=== PATIENT | male | born 1940 | race Caucasian/White ===

== ENCOUNTER 2019-05-11 20:08 | Inpatient (IN) ==
--- NOTE | 2019-05-11 22:18 | Diag Imaging Result Doc PS360 ---
EXAM: CHEST-2 VIEWS INDICATION: cough TECHNIQUE: 2 views COMPARISON: 11/24/2016 FINDINGS: The lungs are grossly clear. There is slight posterior costophrenic angle blunting suggesting possible trace effusions. There is no evidence of pneumothorax. The cardiomediastinal silhouette and central vasculature are grossly unremarkable. IMPRESSION: Mild posterior costophrenic angle blunting suggesting possible trace effusions.No definite acute pathology by plain radiograph, otherwise. Electronically signed by Evan Pike 05/11/2019 10:16 PM
[2019-05-11] MEDS ORDERED: TYLENOL PO ONE (23:08)
[2019-05-11] MEDS ORDERED: NS 1,000 ML IV ONE (23:19)
[2019-05-12] MEDS ORDERED: ZOFRAN IV ONE (00:01)
[2019-05-12 00:37] LABS: BASO# 0.01 X1000 (0.0-0.2); BASO% 0.2 % (0.0-0.8); EOS# 0.12 X1000 (0.0-0.7); EOS% 1.8 % (0.0-10.0); HEMATOCRIT 39.5 % (42.0-52.0); LYMPH# 0.38 X1000 (1.2-3.4); LYMPH% 5.8 % (20.5-51.1); MCH 32.3 PG (27-31); MCHC 32.9 g/dL (33-37); MCV 98.3 FL (81-99); MONO# 0.03 X1000 (0.11-0.59); MONO% 0.5 % (1.7-9.3); MPV 10.8 FL (7.4-10.4); NEUT# 5.98 X1000 (1.4-6.5); NEUT% 91.7 % (42.2-75.2); PLT 169 X1000 (130-400); RBC 4.02 XMIL (4.7-6.1); RDW 13.9 % (11.5-14.5); WBC 6.52 X1000 (4.8-10.8)
[2019-05-12 00:40] LABS: URINE SOURCE CLEAN CATCH
[2019-05-12 00:43] LABS: BILIRUBIN URINE NEGATIVE (NEGATIVE); BLOOD URINE MODERATE (NEGATIVE); COLOR YELLOW; GLUCOSE URINE >1000 mg/dL (NEGATIVE); KETONE URINE NEGATIVE (NEGATIVE); LEUKOCYTES URINE TRACE (NEGATIVE); NITRITE URINE POSITIVE (NEGATIVE); PROTEIN URINE TRACE mg/dL (NEGATIVE); SP GRAVITY URINE 1.018; TURBIDITY URINE HAZY (CLEAR); UR EPITHELIAL CELLS <10 /HPF (<10); URINE BACTERIA 4+ /HPF; URINE RBC TNTC /HPF (<10); UROBILINOGEN URINE NORMAL (NORMAL)
[2019-05-12] MEDS ORDERED: ROCEPHIN 1 GM in NS 50 ML IV ONE (00:45)
[2019-05-12 00:46] LABS: AGAP 14; ALB/GLOB RATIO 1.7; ALBUMIN 4.2 g/dL (3.5-5.0); ALKALINE PHOSPHATASE 67 U/L (32-122); BUN 20 mg/dL (8-22); CALCIUM 8.5 mg/dL (8.8-10.2); CHLORIDE 104 mmol/L (98-107); COSMO 289; CREATININE 1.1 mg/dL (0.7-1.2); ESTIMATED GFR > 60; GLUCOSE 255 mg/dL (70-104); GOT 25 U/L (10-34); GPT 14 U/L (10-44); POTASSIUM 4.1 mmol/L (3.5-5.1); SODIUM 139 mmol/L (136-145); TCO2 21 mmol/L (25-35); TOTAL PROTEIN 6.7 g/dL (6.3-8.3)
--- NOTE | 2019-05-12 01:08 | PROVIDER DOCUMENTATION ---
This chart was entered by Anne Pike Scribe, acting as scribe for Oral Baltazar MD. HPI-General Adult - General Chief Complaint: Flu Symptoms Stated Complaint: FLU SX Time Seen by Provider: 05/11/19 23:10 Source: patient, family Allergies/Adverse Reactions: Patient Allergies Allergy/AdvReac Type Severity Reaction Status Date / Time No Known Allergies Allergy Verified 05/12/19 01:08 Home Medications: Home Medication List Medication Instructions Recorded Confirmed Last Taken Type Amlodipine Besylate 10 mg PO DAILY 08/16/12 11/24/16 11/23/16 History Meloxicam 15 mg PO DAILY 08/16/12 11/24/16 11/23/16 History Metformin HCl 500 mg PO BID 08/16/12 11/24/16 11/23/16 History [place]-3 Fatty Acids [Fish Oil] 1,200 mg PO DAILY 08/16/12 11/24/16 11/23/16 History Omeprazole 20 mg PO HS 08/16/12 11/24/16 11/23/16 History Quinapril [Accupril] 40 mg PO DAILY 08/16/12 11/24/16 11/23/16 History Multivit-Min/FA/Lycopene/Lut 1 each PO DAILY 06/28/14 11/24/16 11/23/16 History [Centrum Silver Tablet] Tamsulosin HCl 0.4 mg PO HS 06/28/14 11/24/16 11/23/16 History Ciprofloxacin HCl [Cipro] 500 mg PO BID #20 tablet 11/24/16 Unknown Rx Gabapentin [Neurontin] 100 mg PO DAILY 11/24/16 11/24/16 11/23/16 History Ondansetron [Zofran Odt] 8 mg PO TID PRN #10 tab.rapdis 11/24/16 Unknown Rx - History of Present Illness -Gen Adult Nature of Presenting Problems: 79 yowm presents w/family to er w/cc pt was dx flu A + yest, this afternoon has worsening chills, nausea, unsteady gait, and fever. pt could not pay for nizfluza wrote by pcp yest and pt did not get filled. pt symptoms began friday w/cough. Severity: reports: mild Onset/Duration: reports: this evening Timing: reports: still present Context/Activities at Onset: reports: none Modifying Factors: improves with: nothing Associated Symptoms: reports: fever/chills, nausea, trouble walking Review of Systems - Adult - REVIEW OF SYSTEMS - ADULT Constitutional: reports: see HPI, chills, fever. denies: fatique, night sweats Eyes: reports: no symptoms reported Ears, Nose, Mouth & Throat: reports: no symptoms reported Cardiovascular: reports: no symptoms reported Respiratory: reports: see HPI, cough. denies: excessive sputum production, hemoptysis, pleurisy Gastrointestinal: reports: see HPI, nausea. denies: abdominal pain, diarrhea, vomiting Genitourinary: reports: no symptoms reported Musculoskeletal: reports: no symptoms reported Integumentary: reports: no symptoms reported Neurological: reports: no symptoms reported Psychiatric: reports: no symptoms reported Endocrine: reports: no symptoms reported Hematologic/Lymphatic: reports: no symptoms reported Allergic/Immunologic: reports: no symptoms reported All Other Systems: Reviewed and Negative Past History - Adult - PAST MEDICAL HISTORY-ADULT Review of Records: reports: Nursing Assessment Review, Medications Reviewed, Social history reviewed & non-contributory. Major Childhood Illnesses: reports: denies history Cardiovascular: reports: HTN Respiratory: reports: denies history Gastrointestinal: reports: diverticulosis, GERD, ulcer Obstetrical/Gynecological: reports: denies history Genitourinary: reports: denies history Musculoskeletal: reports: denies history Neurological: reports: denies history Endocrine/Immune: reports: Diabetes Other Conditions: reports: other cancer (skin) - PRIOR SURGERIES/PROCEDURES Surgical/Procedure History: reports: appendectomy, tonsillectomy, bowel surgery, other - IMMUNIZATION STATUS Childhood Immunizations: See Nurse Assessment Flu Vaccine: See Nurse Assessment - FAMILY HISTORY Family History: reviewed, not pertinent - SOCIAL HISTORY Smoking: other (former smoker) Substance Use: none/never Physical Exam-General - PHYSICAL EXAM-ADULT Initial Vital Signs Reviewed: Yes - CONSTITUTIONAL General Appearance: alert, no apparent distress. negative: cachetic, anxious, lethargic - EYES Eyes: PERRL/EOMI - HEAD, EARS, NOSE, MOUTH & THROAT HENMT: normocephalic/atraumatic, moist mucous membranes - NECK Neck: non-tender, full range of motion, supple, normal inspection - RESPIRATORY Respiratory: chest non-tender, lungs clear, normal breath sounds - CARDIOVASCULAR Cardiovascular: normal peripheral pulses, regular rate, rhythm - GASTROINTESTINAL (ABDOMEN) Abdominal Exam: normal bowel sounds, non tender, soft - MUSCULOSKELETAL Back Exam: normal inspection Extremity: normal range of motion, non-tender, normal inspection - SKIN Integumentary: normal color, normal turgor, warm/dry - NEUROLOGIC Neurologic: grossly normal, no motor/sensory deficits - PSYCHIATRIC Psych/Mental Status: normal mood/affect, normal thought content, normal thought process, oriented x 3 Progress - PLAN OF CARE/RESULTS Progress/Plan/Lab Results: Vital Signs - 8 hr 05/11/19 20:36 Temperature 102.8 F H Pulse Rate 88 Respiratory Rate 24 Blood Pressure 124/83 O2 Sat by Pulse Oximetry 94 L 05/11/19 21:00 Group A Strep Rapid Antigen - Final Throat Laboratory Results - last 24 hr 05/11/19 21:00 Plasma Lactate 1.4 Orders Category Date Time Status NEWS Score 2-4:Order NEWS Lactate Series NOW Care 05/11/19 20:41 Active CHEST-2 VIEWS [RAD] Stat Exams 05/11/19 20:10 Completed DIRECT STREP Stat Lab 05/11/19 21:00 Completed LACTATE, PLASMA [CHEM] Lab 05/11/19 21:00 Completed LACTATE, PLASMA [CHEM] Lab 05/11/19 23:45 Uncollected LACTATE, PLASMA [CHEM] Lab 05/12/19 02:45 Uncollected Acetaminophen [Tylenol] Med 05/11/19 23:08 Discontinued 1,000 mg PO NOW ONE Result Diagrams: 05/11/19 21:00 05/11/19 21:00 - XRAY 1 XRAY Study: Chest Impression: See EMR Report ( EXAM: CHEST-2 VIEWS INDICATION: cough TECHNIQUE: 2 views COMPARISON: 11/24/2016 FINDINGS: The lungs are grossly clear. There is slight posterior costophrenic angle blunting suggesting possible trace effusions. There is no evidence of pneumothorax. The cardiomediastinal silhouette and central vasculature are grossly unremarkable. IMPRESSION: Mild posterior costophrenic angle blunting suggesting possible trace effusions. No definite acute pathology by plain radiograph, otherwise. Electronically signed by Evan Pike 05/11/2019 10:16 PM) - CONSULTS/PCP/HOSPITALIST Notification #1 *Consult/PCP/Hospitalist*: Dr Lopez Time Discussed: 01:06 Consult Disposition: Will see in ED, Admit Departure - Departure Date of Disposition Decision: 05/12/19 Time of Disposition Decision: 01:04 DIAGNOSIS: UTI (urinary tract infection), Influenza, Dehydration Disposition: ADMITTED INPATIENT 09 Certified Medical Emergency: Emergent Condition: Fair Referrals and Follow-Ups: Janis Rose MD [Primary Care Provider] - - Critical Care Note This patient required my direct & personal management of CC.: No Attestation - Physician/ MATT Attestation Patient care was provided by Advanced Practice Provider:: No The physician spent face to face time with patient:: Yes Advanced Practice Provider documentation review:: Supervising physician onsite and consulted in the evaluation and care of this patient. The physician did have a face to face encounter with the patient. This chart was documented by the indicated scribe, (Anne Pike, Cynthia) and accurately reflects the services I performed and decisions made by me, Oral Baltazar MD, as attested by the provider's signature.
[2019-05-12] MEDS ORDERED: NS 1,000 ML IV ONE ×3 (02:47→04:16)
[2019-05-12 03:42] LABS: INR 0.95; PROTIME 12.7 Seconds (11.0-16.0)
[2019-05-12 03:43] LABS: PTT 28.6 Seconds (22.3-41.8)
[2019-05-12] MEDS ORDERED: NS 1,000 ML ONE (04:21)
[2019-05-12] MEDS ORDERED: LEVOPHED 8 MG in D5 1/2 NS 250 ML IV SCH (05:00)
[2019-05-12] MEDS: TAMIFLU PO SCH ×2 (06:30→18:14)
[2019-05-12 06:53] LABS: HEMOGLOBIN A1C 6.7 % (4.8-6.0)
[2019-05-12 07:15] LABS: BASO# 0.01 X1000 (0.0-0.2); BASO% 0.1 % (0.0-0.8); EOS# 0.01 X1000 (0.0-0.7); EOS% 0.1 % (0.0-10.0); HEMATOCRIT 33.7 % (42.0-52.0); HEMOGLOBIN 11.4 g/dL (14.0-18.0); IMM GRAN# 0.07 X1000 (0.0-0.04); IMM GRAN% 0.4 % (0.0-0.5); LYMPH# 0.35 X1000 (1.2-3.4); LYMPH% 2.2 % (20.5-51.1); MCHC 33.8 g/dL (33-37); MCV 97.7 FL (81-99); MONO# 0.34 X1000 (0.11-0.59); MONO% 2.2 % (1.7-9.3); MPV 10.4 FL (7.4-10.4); NEUT# 14.78 X1000 (1.4-6.5); PLT 144 X1000 (130-400); RBC 3.45 XMIL (4.7-6.1); RDW 13.8 % (11.5-14.5); WBC 15.56 X1000 (4.8-10.8)
--- NOTE | 2019-05-12 07:20 | EKG Report ---
Test Performed on : 05/12/2019 04:41:15 AM Test Reason : Influenza,UTI,Hypotension,Poss. Sepsis Blood Pressure : / mmHG Vent. Rate : 069 BPM Atrial Rate : 069 BPM P-R Int : 166 ms QRS Dur : 094 ms QT Int : 414 ms P-R-T Axes : 059 -16 -11 degrees QTc Int : 443 ms Normal sinus rhythm. Normal ECG When compared with ECG of 28-JUN-2014 14:13, No significant change was found Unconfirmed Result
[2019-05-12 07:30] LABS: AGAP 15; ALB/GLOB RATIO 1.5; ALBUMIN 3.4 g/dL (3.5-5.0); ALKALINE PHOSPHATASE 54 U/L (32-122); BUN 21 mg/dL (8-22); CALCIUM 7.5 mg/dL (8.8-10.2); CHLORIDE 108 mmol/L (98-107); CK PROFILE 76 U/L (24-204); COSMO 284; CREATININE 1.1 mg/dL (0.7-1.2); ESTIMATED GFR > 60; GLUCOSE 164 mg/dL (70-104); GOT 26 U/L (10-34); GPT 13 U/L (10-44); POTASSIUM 4.1 mmol/L (3.5-5.1); SODIUM 139 mmol/L (136-145); TCO2 16 mmol/L (25-35); TOTAL BILIRUBIN 0.46 mg/dL (0.20-1.00); TOTAL PROTEIN 5.6 g/dL (6.3-8.3)
[2019-05-12] MEDS ORDERED: ZOFRAN IV PRN (07:38)
[2019-05-12] MEDS ORDERED: SODIUM CHLORIDE 0.9% INJ SCH (08:15)
[2019-05-12] MEDS ORDERED: NEXIUM IV SCH (08:15)
[2019-05-12] MEDS: LOVENOX SUBQ SCH (08:29)
[2019-05-12] MEDS: CENTRUM SILVER PO SCH (08:29)
[2019-05-12] MEDS: SODIUM CHLORIDE 0.9% INJ SCH (08:30)
[2019-05-12] MEDS: PROTONIX IV SCH (08:30)
[2019-05-12] MEDS: NS 1,000 ML IV SCH ×2 (08:30→20:18)
[2019-05-12] MEDS: TYLENOL PO PRN (08:47)
[2019-05-12] MEDS ORDERED: NORVASC PO SCH (09:00)
[2019-05-12] MEDS ORDERED: MAGNESIUM SULFATE 2 GM/S.W.I. 2 GM/50 ML IVPB IV ONE (09:06)
[2019-05-12 09:46] LABS: LYMPHS 3 % (21-51); SEGS 97 % (42-75)
[2019-05-12] MEDS: HUMULIN R SUBQ SCH ×3 (11:02→20:18)
[2019-05-12] MEDS: NEURONTIN PO SCH (20:17)
[2019-05-12] MEDS: FLOMAX PO SCH (20:17)
[2019-05-12] MEDS: PRILOSEC PO SCH (20:17)
[2019-05-12] MEDS: ZOSYN 3.375 GM in NS 50 ML IV SCH (20:17)
[2019-05-12] MEDS ORDERED: LOTENSIN PO SCH (21:00)
--- NOTE | 2019-05-12 22:09 | PROGRESS NOTE ---
DATE: 05/12/2019 SUBJECTIVE: An 79-year-old white gentleman who came to the ER with low blood pressure, sepsis like syndrome. He was recently diagnosed influenza A infection. He is in ICU with IV fluids and IV Levophed. Patient is well known to my practice. PAST MEDICAL HISTORY: Reviewed. PAST SURGICAL HISTORY: Reviewed. MEDICINES: Reviewed. ALLERGIES: Not known. PHYSICAL EXAMINATION: Hemodynamics are stable. Chest: Is clear. Heart: Sounds are regular. Abdomen: Belly is soft, nontender, and he is in diapers. Canal implant noted. Neurologic: No obvious deficits. LABS: White cell count 15.5, hematocrit 33, platelets of 144,000. Sodium 139, potassium 4.1, BUN 21, creatinine 1.1, glucose 160, magnesium 1.2. Urinalysis is positive. Blood cultures positive gram-negative rods. Influenza A positive. ASSESSMENT AND PLAN: 1. Influenza A. Continue Tamiflu for 5 days. 2. Urosepsis, IV fluids, IV Levophed. Slowly wean off. We will hold the blood pressure medicines and change to IV Zosyn. Follow up on culture and sensitivity. 3. Diabetes on insulin scale with sliding scale with coverage. 4. Needs a deep vein thrombosis and gastrointestinal prophylaxis as per order sheet. We will check the labs in the morning. Currently stable. LEVEL OF DOCUMENTATION: 35 minutes. cc: Ryan Rose MD
[2019-05-13] MEDS ORDERED: ROCEPHIN 1 GM in NS 50 ML IV SCH (01:00)
[2019-05-13] MEDS: ZOSYN 3.375 GM in NS 50 ML IV SCH ×4 (01:01→20:17)
--- NOTE | 2019-05-13 04:23 | HISTORY AND PHYSICAL ---
PRIMARY CARE PROVIDER: Dr. Ryan Rose. DATE AND TIME: 05/12/2019 at 0545. CHIEF COMPLAINT: Flu symptoms. HISTORY OF PRESENT ILLNESS: Mr. Matthews is an 79-year-old male who presented to the ER on 05/11/2019 at 2008 hours with complaints of worsening fever, body aches, chills and nausea. The patient states that on Friday, he did have onset of a cough. He said his symptoms have progressively gotten worse and he began having fever, body aches, chills and some nausea. He did go to an urgent care on Friday and was diagnosed with influenza A. He states that he was not given prescriptions secondary to being told that his insurance would not cover Tamiflu. He did present to the ER today for worsening symptoms. The patient denies any headache, dizziness, chest pain, or shortness of breath. He is reporting the nonproductive cough. He did report some nausea. Denies any vomiting or diarrhea. He denies any hematochezia or melena. He denies any dysuria or urinary frequency. In the ER, he had no leukocytosis noted but he did have a fever of 102.8 upon presentation. Other vital signs upon arrival were heart rate 88, respirations 22, blood pressure is 124/83, oxygen saturation was 94% on room air. He was hyperglycemic, had a serum glucose of 255. Urinalysis did show a nitrite positive urinary tract infection. Chest x- ray did not show any acute abnormalities, except for mild posterior costophrenic angle blunting suggesting possible trace effusions. While in the ER, shortly after his arrival the patient did become hypotensive. He did receive a total of 4 L normal saline bolus. Though he still did remain hypotensive, he was subsequently placed on Levophed drip. The patient will be placed in ICU for close monitoring. REVIEW OF SYSTEMS: A 14-point review of systems was conducted with the patient and all were negative, except for pertinent positives mentioned in the above HPI. PAST MEDICAL HISTORY: 1. History of basal cell skin cancer. 2. Diabetes mellitus. 3. Hypertension. 4. Reported history of healing ulcers. 5. BPH. 6. Kidney stones. PAST SURGICAL HISTORY: 1. Appendectomy. 2. Lithotripsy. 3. Skin cancer removal. 4. Right hand carpal tunnel surgery. SOCIAL HISTORY: The patient is a former smoker. He has no known tobacco history. He has no known alcohol or illicit drug use. FAMILY HISTORY: Positive for skin cancer. His mother from heart failure at age 89. His father of natural causes of old age at age 90. ALLERGIES: Patient has no known allergies. HOME MEDICATIONS: 1. Amlodipine 10 mg p.o. daily. 2. Benazepril 40 mg p.o. at bedtime. 3. Gabapentin 100 mg p.o. daily. 4. Advil p.m. liquid gels 1 p.o. at bedtime p.r.n. 5. Meloxicam 50 mg p.o. daily. 6. Centrum Silver multivitamin 1 p.o. daily. 7. Omeprazole 20 mg p.o. at bedtime. 8. Accupril 40 mg p.o. daily. 9. Flomax 0.4 mg p.o. at bedtime. DIAGNOSTIC DATA/LABORATORY RESULTS: White blood cell count is 6520, hemoglobin 13, hematocrit 39.5, platelet count is 169,000. PT 12.2, INR 0.95, PTT is 28.6. Sodium 139, potassium 4.1, chloride 104, serum bicarb 21, BUN 20, creatinine 1.1, with a GFR greater than 60. Glucose 255, calcium 8.5. Liver function tests within normal limits. CK 75, troponin 12, plasma lactate 1.4. Urinalysis was positive for trace protein, greater than a 1000 glucose, moderate blood, positive nitrites, trace leukocytes, 10 to 20 white blood cells, and [id number]-count red blood cells, 4+ bacteria. EKG showed normal sinus rhythm at a rate of 69 with a QTc of 443. Chest x-ray showed mild posterior costophrenic angle blunting suggesting possible trace effusions. There is no definite acute pathology. This is per Radiology. PHYSICAL EXAMINATION: VITAL SIGNS: Temperature 98.8 degrees, heart rate 77, respirations 23, blood pressure is 102/61 with a MAP of 73, and oxygen saturation is 96% per nasal cannula at 2 L. GENERAL: Mr. Gerardo is a pleasant 79-year-old male who is resting in the inpatient ICU bed. He was awake and alert, able answer questions appropriately. HEENT: Head is atraumatic, normocephalic. Pupils are equal, round, reactive to light, were 3 mm bilaterally and brisk. Oral mucosa is moist. Oropharynx clear. NECK: Supple. Trachea midline. CARDIOVASCULAR: Patient has S1, S2 present. No murmurs, gallops, rubs appreciated with a regular rate and rhythm. PULMONARY: Patient has symmetrical chest expansion bilaterally. Lung sounds bilateral wallace were clear to auscultation. The patient did have very fine crackles noted in bilateral bases. ABDOMEN: Soft, does appear to be tender, though the patient has a slightly protuberant abdomen noted. Bowel sounds were present in all 4 quadrants, were normoactive. The patient had no CVA tenderness noted upon palpation. EXTREMITIES: No cyanosis or edema noted. Pulse, motor, and sensory were intact in all extremities. Radial pulses were 2+ bilaterally. Pedal pulses were 1+ bilaterally. INTEGUMENTARY: The patient's skin is pink, warm, and dry. NEUROLOGICAL: Patient is alert and oriented to person, place, time and situation. He is able to move all extremities. There are no focal neurological deficits noted. ASSESSMENT AND PLAN: 1. Influenza A. The patient with Tamiflu 75 mg p.o. b.i.d. 2. Urinary tract infection. We have placed orders for a urine culture. We will provide antibiotics of Rocephin 1 g IV q.24 hours. 3. Possible sepsis. The patient does have a source of infection and fever. He does not have any leukocytosis, though he did become hypotensive in the ER. He has been adequately fluid resuscitated with 4 L of normal saline. He will be on maintenance IV fluids at this time. We will continue to monitor patient's status closely. He does have a urinary tract infection. We will provide antibiotic Rocephin IV for this. We are awaiting urine culture. Also, he does have influenza A, will provide Tamiflu and supportive care for this. We have placed the patient to have incentive spirometry, duo nebs p.r.n. as needed. We will encourage frequent turn, cough and deep breathing as well. We will continue to monitor this closely. The patient has been placed in ICU for close monitoring. 4. Hypotension. This could be likely secondary to possible sepsis. The patient has been fluid resuscitated. His blood pressure has improved some, though still was low. He did ultimately have to be placed on Levophed infusion. We will continue monitor closely. We will try to wean the patient off of this, if possible. 5. Diabetes mellitus type 2. We will place the patient on a sliding scale regular insulin with pattern fingerstick blood sugars. Will continue to follow. 6. Deep venous thrombosis prophylaxis. Will be provided with sequential compression devices. I did speak with Dr. Rose this morning in the ICU. I did inform him of the patient's symptoms as well as his fever, and that his morning labs did show that he had elevated white blood cell count. I did notify him of the fine crackles in bilateral bases. I did discuss with him about possibly ordering a CT of the chest, though Dr. Rose did ask to hold off on this at this time and he would evaluate the patient. Dictated by SAMEERA Dee for Brant Lopez MD I have performed a face to face diagnostic evaluation. Labs/Xrays- reviewed. Exam- Chest - rhonchi, CV- regular. A/P- Influenza A, Sepsis- Admit, IV Fluids, Tamiflu, check blood cultures, IV ABX. Dr. Lopez cc: MD Ryan Stallworth MD [facility]
[2019-05-13] MEDS: TAMIFLU PO SCH ×2 (05:25→17:48)
[2019-05-13 05:48] LABS: BASO# 0.02 X1000 (0.0-0.2); BASO% 0.1 % (0.0-0.8); EOS# 0.12 X1000 (0.0-0.7); EOS% 0.9 % (0.0-10.0); HEMATOCRIT 35.4 % (42.0-52.0); HEMOGLOBIN 11.7 g/dL (14.0-18.0); IMM GRAN# 0.03 X1000 (0.0-0.04); IMM GRAN% 0.2 % (0.0-0.5); LYMPH# 1.47 X1000 (1.2-3.4); LYMPH% 10.5 % (20.5-51.1); MCH 32.6 PG (27-31); MCHC 33.1 g/dL (33-37); MCV 98.6 FL (81-99); MONO# 0.82 X1000 (0.11-0.59); MONO% 5.8 % (1.7-9.3); MPV 10.5 FL (7.4-10.4); NEUT# 11.57 X1000 (1.4-6.5); NEUT% 82.5 % (42.2-75.2); PLT 123 X1000 (130-400); RBC 3.59 XMIL (4.7-6.1); RDW 14.2 % (11.5-14.5); WBC 14.03 X1000 (4.8-10.8)
[2019-05-13 06:39] LABS: AGAP 9; BUN 16 mg/dL (8-22); CALCIUM 8.1 mg/dL (8.8-10.2); CHLORIDE 109 mmol/L (98-107); COSMO 278; CREATININE 1.1 mg/dL (0.7-1.2); ESTIMATED GFR > 60; GLUCOSE 120 mg/dL (70-104); POTASSIUM 4.1 mmol/L (3.5-5.1); SODIUM 138 mmol/L (136-145); TCO2 20 mmol/L (25-35)
[2019-05-13] MEDS: HUMULIN R SUBQ SCH ×4 (07:01→20:17)
[2019-05-13] MEDS: CENTRUM SILVER PO SCH (08:16)
[2019-05-13] MEDS: LOVENOX SUBQ SCH (08:16)
[2019-05-13] MEDS: SODIUM CHLORIDE 0.9% INJ SCH (08:16)
[2019-05-13] MEDS: PROTONIX IV SCH (08:16)
[2019-05-13] MEDS: NS 1,000 ML IV SCH (09:45)
[2019-05-13] MEDS: FLOMAX PO SCH (20:17)
[2019-05-13] MEDS: NEURONTIN PO SCH (20:17)
[2019-05-13] MEDS: PRILOSEC PO SCH (20:17)
--- NOTE | 2019-05-13 20:31 | PROGRESS NOTE ---
DATE: 05/13/2019 SUBJECTIVE: Patient is stable off Levophed. Still has some URI symptoms. No chills. REVIEW OF SYSTEMS: None reported. PHYSICAL EXAMINATION: Vital signs: Temperature is 97 degrees. Vitals are stable. HEENT: Within normal limits. Chest: Clear. Heart: Sounds are regular. Abdomen: Belly is soft and nontender. Neurologic: No neurological deficits. INVESTIGATIONS: White cell count 14, hematocrit 35, platelets 123,000. SMA 7: Sodium 138, potassium 4.1, BUN 16, creatinine 1.1, glucose 200. Urine cultures, blood cultures: Gram- negative rods. ASSESSMENT AND PLAN: 1. Urosepsis. Waiting for culture and sensitivity. Intravenous Zosyn. Continue intravenous fluids. Off vasopressors. 2. Diabetes, on sliding scale with insulin coverage. Decrease intravenous fluids 50 mL/hour. 3. Influenza A, on Tamiflu until Friday. 4. Thrombocytopenia from sepsis, stable. 5. Continue deep venous thrombosis and gastrointestinal prophylaxis. 6. Plan of care discussed with the patient. We will follow up. LEVEL OF DOCUMENTATION: 25 minutes. cc: Ryan Rose MD
[2019-05-14] MEDS: ZOSYN 3.375 GM in NS 50 ML IV SCH (02:52)
[2019-05-14 05:11] LABS: BASO# 0.01 X1000 (0.0-0.2); BASO% 0.1 % (0.0-0.8); EOS# 0.06 X1000 (0.0-0.7); EOS% 0.6 % (0.0-10.0); HEMATOCRIT 32.9 % (42.0-52.0); HEMOGLOBIN 11.1 g/dL (14.0-18.0); IMM GRAN# 0.02 X1000 (0.0-0.04); IMM GRAN% 0.2 % (0.0-0.5); LYMPH# 1.45 X1000 (1.2-3.4); LYMPH% 14.3 % (20.5-51.1); MCH 32.6 PG (27-31); MCHC 33.7 g/dL (33-37); MCV 96.8 FL (81-99); MONO# 0.77 X1000 (0.11-0.59); MONO% 7.6 % (1.7-9.3); MPV 10.3 FL (7.4-10.4); NEUT# 7.84 X1000 (1.4-6.5); NEUT% 77.2 % (42.2-75.2); PLT 114 X1000 (130-400); RDW 13.7 % (11.5-14.5); WBC 10.15 X1000 (4.8-10.8)
[2019-05-14] MEDS: TAMIFLU PO SCH ×2 (05:18→16:46)
[2019-05-14 05:49] LABS: AGAP 11; BUN 13 mg/dL (8-22); CHLORIDE 104 mmol/L (98-107); COSMO 272; ESTIMATED GFR > 60; GLUCOSE 134 mg/dL (70-104); POTASSIUM 3.8 mmol/L (3.5-5.1); SODIUM 135 mmol/L (136-145); TCO2 20 mmol/L (25-35)
[2019-05-14] MEDS: HUMULIN R SUBQ SCH ×4 (06:00→20:38)
[2019-05-14] MEDS: NS 1,000 ML IV SCH (06:04)
[2019-05-14] MEDS ORDERED: PRIMAXIN 1,000 MG in NS 250 ML IV SCH (07:15)
[2019-05-14] MEDS: LOVENOX SUBQ SCH (08:46)
[2019-05-14] MEDS: CENTRUM SILVER PO SCH (08:46)
[2019-05-14] MEDS: MERREM 1 GM in NS 50 ML IV SCH ×2 (08:46→16:46)
[2019-05-14] MEDS: SODIUM CHLORIDE 0.9% INJ SCH (08:46)
[2019-05-14] MEDS: MIRALAX PO SCH (08:46)
[2019-05-14] MEDS: PROTONIX IV SCH (08:46)
[2019-05-14] MEDS: DUONEB (A & A) INH PRN (16:16)
--- NOTE | 2019-05-14 18:50 | PROGRESS NOTE ---
DATE: 05/14/2019 SUBJECTIVE: The patient's son is visiting from [place] and the patient is slowly improving. URI symptoms are better. Escherichia coli was isolated in the urine, ESBL positive. Change the antibiotics to IV imipenem. Complains of constipation. OBJECTIVE: Vital Signs: Fever 99.6, heart rate is 52, vitals are stable. HEENT: Within normal limits. Chest: Clear. Heart: Sounds are regular. Belly is soft, nontender. In diapers. LABORATORY DATA: CBC: White cell count 10, hematocrit 32.9, platelets 114,000. SMA 7 is normal. Urine cultures and blood cultures positive for ESBL, Escherichia coli. ASSESSMENT AND PLAN: 1. Urosepsis due to extended-spectrum beta-lactamases Escherichia coli. Changing IV imipenem 1 g q.12. 2. Thrombocytopenia stable. 3. Hemodynamics are stable off vasopressors and fluids. 4. Influenza A on Tamiflu for 5 days until Friday morning. 5. Hold the blood pressure medicine. Consult with Dr. Abernathy as per the family and if he is stable will transfer to the step-down unit over the weekend and continue to monitor. LEVEL OF DOCUMENTATION: 25 minutes. cc: Ryan Rose MD
[2019-05-14] MEDS: NEURONTIN PO SCH (20:39)
[2019-05-14] MEDS: PRILOSEC PO SCH (20:39)
[2019-05-14] MEDS: FLOMAX PO SCH (20:39)
[2019-05-15] MEDS: NS 1,000 ML IV SCH ×3 (00:05→20:42)
[2019-05-15] MEDS: MERREM 1 GM in NS 50 ML IV SCH ×3 (00:05→18:40)
[2019-05-15] MEDS: TAMIFLU PO SCH ×2 (05:43→18:40)
[2019-05-15] MEDS: TYLENOL PO PRN (05:59)
[2019-05-15 07:07] LABS: BASO# 0.02 X1000 (0.0-0.2); BASO% 0.3 % (0.0-0.8); EOS# 0.07 X1000 (0.0-0.7); EOS% 0.9 % (0.0-10.0); HEMATOCRIT 33.3 % (42.0-52.0); HEMOGLOBIN 11.1 g/dL (14.0-18.0); IMM GRAN# 0.02 X1000 (0.0-0.04); IMM GRAN% 0.3 % (0.0-0.5); LYMPH# 1.43 X1000 (1.2-3.4); LYMPH% 19.4 % (20.5-51.1); MCH 32.6 PG (27-31); MCHC 33.3 g/dL (33-37); MCV 97.7 FL (81-99); MONO# 0.74 X1000 (0.11-0.59); MPV 10.8 FL (7.4-10.4); NEUT# 5.09 X1000 (1.4-6.5); NEUT% 69.1 % (42.2-75.2); PLT 128 X1000 (130-400); RBC 3.41 XMIL (4.7-6.1); RDW 13.4 % (11.5-14.5); WBC 7.37 X1000 (4.8-10.8)
[2019-05-15] MEDS: HUMULIN R SUBQ SCH ×4 (07:20→20:43)
[2019-05-15 07:31] LABS: AGAP 10; BUN 9 mg/dL (8-22); CALCIUM 8.5 mg/dL (8.8-10.2); CHLORIDE 108 mmol/L (98-107); COSMO 277; CREATININE 0.8 mg/dL (0.7-1.2); ESTIMATED GFR > 60; GLUCOSE 118 mg/dL (70-104); SODIUM 139 mmol/L (136-145); TCO2 21 mmol/L (25-35)
[2019-05-15] MEDS: PROTONIX IV SCH (08:59)
[2019-05-15] MEDS: CENTRUM SILVER PO SCH (08:59)
[2019-05-15] MEDS: LOVENOX SUBQ SCH (08:59)
[2019-05-15] MEDS: MIRALAX PO SCH (09:00)
--- NOTE | 2019-05-15 09:12 | PROGRESS NOTE ---
DATE: 05/15/2019 VITAL SIGNS: Temperature 100.9 degrees temporal, heart rate 53, respirations 21, blood pressure 144/82. LABORATORY: Hemoglobin 11.1, hematocrit 33.3, white blood count 7400 with 69% neutrophils. Sodium 139, potassium 4.0, BUN 9, creatinine 0.8, glucose 108, calcium 8.5. SUBJECTIVE: The patient states he feels much better. Antibiotics were changed to imipenem yesterday due to sensitivities. Urine culture was growing E. coli. He also has flu and is on Tamiflu. He ate breakfast well this morning. He has a mild cough and some yellowish sputum production. This is most likely related to his influenza. He was seen by Dr. Abernathy this morning. PLAN: Transfer to the floor and continue current care. cc: MD Ryan Glez MD
[2019-05-15] MEDS: DUONEB (A & A) INH PRN ×2 (09:42→22:28)
--- NOTE | 2019-05-15 10:02 | CONSULTATION ---
DATE OF CONSULTATION: 05/15/2019 ATTENDING/REFERRING PHYSICIAN: Dr. Rose. HISTORY OF PRESENT ILLNESS: This 79-year-old male was admitted with sepsis syndrome secondary to urinary tract infection with extended spectrum beta lactamase- positive E. coli and the flu. The patient states he currently feels much better. He is being seen in the intensive care unit, but is being transferred to the floor. The patient had an inflatable penile implant placed in 2014. This became infected and was removed, and a malleable implant was placed at removal. He states that has been doing well. He has no voiding complaints, and in fact did not have a Nguyen placed during his stay in the intensive care unit. He states he is having some urgency. He states even before he was admitted to the hospital, he was having urgency. He is using Flomax at 0.4 mg a day. The patient denies any hematuria. PAST MEDICAL HISTORY: 1. Diabetes. 2. Hypertension. 3. History of gastric ulcers. 4. Remote history of kidney stones. 5. History of skin cancers. CURRENT MEDICATIONS: Documented on the chart and include Flomax at 0.4 mg a day. PAST SURGICAL HISTORY: Skin cancer removal, appendectomy, shockwave lithotripsy, right carpal tunnel surgery, placement of a 3-piece inflatable implant, removal of the 3-piece inflatable implant and placement of a malleable implant. SOCIAL HISTORY: No recent tobacco use. No alcohol use. ALLERGIES: No known drug allergies. REVIEW OF SYSTEMS: He states usually he is in good health. He denies any problems with heart disease, strokes, or seizures. He has had no recent bowel problems. He has had no recent problems with kidney stones. PHYSICAL EXAMINATION: General: A normally-developed, well-nourished, age apparent white male, oriented in all ways and cooperative. HEENT: Normal for age. Lungs: Clear. Cardiovascular: Regular rate and rhythm. Abdomen: Mildly protuberant, soft, nontender. No hepatosplenomegaly or masses. Normal bowel sounds. : Uncircumcised male with malleable implant in place in good position. Both testes are down. Scrotal exam is palpably normal. There are no inguinal hernias. Rectal: Normal sphincter tone. Prostate about 50 to 60 grams, smooth and symmetric. Extremities: No clubbing, cyanosis, or edema. Neuro: No focal deficits. LABORATORY EVALUATION: He has a white count of 7.37, hemoglobin 11.1, hematocrit 33.3 and platelets are 128,000. Serum electrolytes are normal. BUN 9 and creatinine 0.8. IMPRESSION: 1. Sepsis syndrome that is resolving. 2. Flu that is resolving. 3. Enlarged prostate with obstructive voiding with some urgency. RECOMMENDATION: Recommend to increase Flomax to 0.4 mg b.i.d. He is currently on imipenem for the ESBL positive E. coli, and would recommend continuing that until he is afebrile for 48 hours. Thank you for this consultation. cc: MD Ryan Cha MD
[2019-05-15] MEDS: FLOMAX PO SCH ×2 (13:00→20:43)
[2019-05-15] MEDS: PRILOSEC PO SCH (20:43)
[2019-05-15] MEDS: NEURONTIN PO SCH (20:43)
[2019-05-16] MEDS: NS 1,000 ML IV SCH ×3 (01:17→17:52)
[2019-05-16] MEDS: MERREM 1 GM in NS 50 ML IV SCH ×3 (01:18→15:56)
[2019-05-16] MEDS: HUMULIN R SUBQ SCH ×4 (06:20→20:29)
[2019-05-16] MEDS: LOVENOX SUBQ SCH (08:43)
[2019-05-16] MEDS: FLOMAX PO SCH ×2 (08:43→20:29)
[2019-05-16] MEDS: CENTRUM SILVER PO SCH (08:43)
[2019-05-16] MEDS: MIRALAX PO SCH (08:43)
[2019-05-16] MEDS: PROTONIX IV SCH (08:44)
[2019-05-16] MEDS: TAMIFLU PO SCH ×2 (08:45→20:28)
--- NOTE | 2019-05-16 11:33 | PROGRESS NOTE ---
DATE: 05/16/2019 VITAL SIGNS: Temperature 98.7 degrees, heart rate 54, respirations 18, blood pressure 158/77, O2 saturation 97% on 2 liters nasal oxygen. O2 saturation was 96 on room air earlier. The patient does not have oxygen on when seen by me. LABORATORY DATA: White blood count was 7400 yesterday. Blood sugar this morning was 175. Urine culture and blood culture revealed Escherichia coli sensitive to nitrofurantoin and imipenem. It was resistant to trimethoprim sulfa. PLAN: Because of the bacteremia, he will be kept in the hospital today on intravenous imipenem. He is eating well. He also was ambulating. Hopefully, he can go home soon on p.o. antibiotics. cc: MD Ryan Glez MD
[2019-05-16] MEDS: DUONEB (A & A) INH PRN (11:57)
[2019-05-16] MEDS: NEURONTIN PO SCH (20:28)
[2019-05-16] MEDS: PRILOSEC PO SCH (20:28)
[2019-05-17] MEDS: MERREM 1 GM in NS 50 ML IV SCH ×3 (00:06→16:18)
[2019-05-17] MEDS: TYLENOL PO PRN (05:48)
[2019-05-17] MEDS: HUMULIN R SUBQ SCH ×4 (06:01→20:43)
[2019-05-17] MEDS: LOVENOX SUBQ SCH (08:43)
[2019-05-17] MEDS: PROTONIX IV SCH (08:43)
[2019-05-17] MEDS: TAMIFLU PO SCH ×2 (08:43→20:44)
[2019-05-17] MEDS: CENTRUM SILVER PO SCH (08:43)
[2019-05-17] MEDS: FLOMAX PO SCH ×2 (08:43→20:42)
[2019-05-17] MEDS: SODIUM CHLORIDE 0.9% INJ SCH (08:43)
[2019-05-17] MEDS: NS 1,000 ML IV SCH ×2 (11:17→13:59)
[2019-05-17] MEDS: DUONEB (A & A) INH PRN (11:29)
--- NOTE | 2019-05-17 12:06 | Diag Imaging Result Doc PS360 ---
EXAM: XRAY HIP UNILATERAL RT 05/17/2019 HISTORY: Hip pain TECHNIQUE: Right hip two views COMMENT: The hip joint spaces well-maintained. There is calcification of the visualized arterial tree. There is no evidence of fracture or dislocation. IMPRESSION: No acute bony abnormality. Electronically signed by Dexter Gross 05/17/2019 12:04 PM
[2019-05-17] MEDS: ULTRAM PO PRN (12:09)
[2019-05-17] MEDS ORDERED: ULTRAM PO SCH (13:00)
[2019-05-17] MEDS: PRILOSEC PO SCH (20:42)
[2019-05-17] MEDS: NEURONTIN PO SCH (20:42)
--- NOTE | 2019-05-17 21:45 | PROGRESS NOTE ---
DATE: 05/17/2019 SUBJECTIVE: Events noted. 79-year-old white gentleman admitted to the hospital with the E coli sepsis, ESBL positive. He is on IV imipenem. I appreciated Dr. Abernathy consult. He has remote history of kidney stones and enlarged prostate 40 g. Last PSA was normal. He has complaints of right hip pain. Even in January, he was seen in [facility], got a CT, diagnosed with a bursitis. The daughter was at bedside. Interval history was reviewed. OBJECTIVE: Vital signs: On examination, temperature is 98 degrees. Vitals are stable. HEENT: Exam within normal limits. Neck: Supple. Chest: Bilateral air entry. Heart: Sounds are regular. Abdomen: Belly is soft, nontender. Neurologic: No obvious deficits. ASSESSMENT AND PLAN: 1. Influenza infection, off treatment with Tamiflu, better. 2. Extended-spectrum beta lactamase urosepsis, on intravenous imipenem. He had enlarged prostate. This could be prostatitis. He needs at least 2 weeks of intravenous antibiotics. We will begin the process with ultrasound of the renal and prostate and peripherally inserted central catheter line, and arrange for intravenous antibiotics. 3. Right hip pain, etiology to be determined. 4. Deep vein thrombosis and gastrointestinal prophylaxis with Lovenox and Protonix. Continue on Flomax 0.4 p.o. b.i.d. and will transition the care as an outpatient since his sepsis is improving. LEVEL OF DOCUMENTATION: [25] cc: Ryan Rose MD MTDD
[2019-05-18] MEDS: MERREM 1 GM in NS 50 ML IV SCH ×4 (00:11→23:06)
[2019-05-18] MEDS: ULTRAM PO PRN ×3 (03:28→23:13)
[2019-05-18] MEDS: HUMULIN R SUBQ SCH ×5 (06:31→23:12)
[2019-05-18] MEDS: PROTONIX IV SCH (08:50)
[2019-05-18] MEDS: FLOMAX PO SCH ×2 (08:50→23:12)
[2019-05-18] MEDS: LOVENOX SUBQ SCH (08:50)
[2019-05-18] MEDS: CENTRUM SILVER PO SCH (08:50)
[2019-05-18] MEDS: MOBIC PO SCH (08:58)
[2019-05-18] MEDS ORDERED: TORADOL IV PRN (08:59)
[2019-05-18 09:57] LABS: HEMATOCRIT 34.2 % (42.0-52.0); HEMOGLOBIN 11.5 g/dL (14.0-18.0); MCH 32.4 PG (27-31); MCHC 33.6 g/dL (33-37); MCV 96.3 FL (81-99); MPV 10.1 FL (7.4-10.4); RBC 3.55 XMIL (4.7-6.1); RDW 13.1 % (11.5-14.5); WBC 10.83 X1000 (4.8-10.8)
[2019-05-18 10:03] LABS: PROTIME 13.3 Seconds (11.0-16.0)
[2019-05-18] MEDS: DUONEB (A & A) INH PRN (10:06)
[2019-05-18] MEDS ORDERED: NS 250 ML ONE (10:55)
--- NOTE | 2019-05-18 15:50 | Diag Imaging Result Doc PS360 ---
KNEE 3 VIEWS LEFT - 05/18/2019 INDICATION: Left knee pain/ swelling. TECHNIQUE: Three views COMPARISON: None FINDINGS: There is a metallic body in the anterior medial soft tissues at the level of the patellofemoral joint. This probably does not contact the knee joint capsule. This measures about 8.5 mm. There is moderate osteoarthritis of the knee with joint space narrowing and osteophyte formation. There is advanced peripheral arterial disease with severe vascular calcification of the popliteal artery and all of its branches. No fractures. Moderate nonspecific suprapatellar joint effusion. IMPRESSION: Nonspecific findings. Electronically signed by Jacek Talbot 05/18/2019 3:48 PM
[2019-05-18 16:15] LABS: BODY FLUID SOURCE SYNOVIAL FLUID; WBC BF 42340 /cumm
[2019-05-18 16:16] LABS: MONOS 13 %; POLYS 87 %
[2019-05-18] MEDS ORDERED: DUONEB (A & A) INH PRN (16:17)
--- NOTE | 2019-05-18 16:21 | Diag Imaging Result Doc PS360 ---
US RENAL 2 (RETROPER) COMPLETE - 05/18/2019 INDICATION: helen/arf TECHNIQUE: COMPARISON: 11/24/2016 FINDINGS: The kidneys are normal. The urinary bladder is normal. The right kidney measures 12.5 x 5.3 x 4.7 cm. The left kidney measures 12.6 x 4.7 x 6.2 cm. IMPRESSION: Negative exam. Electronically signed by Jacek Talbot 05/18/2019 4:18 PM
--- NOTE | 2019-05-18 16:51 | Diag Imaging Result Doc PS360 ---
CHEST-1 VIEW - 05/18/2019 INDICATION: fever COMPARISON: 05/11/2019 FINDINGS: There is a left PICC line in good position with the catheter tip at the upper SVC. Stable pulmonary vascular congestion. No infiltrates or edema. No pneumothorax or pleural effusion. IMPRESSION: Good PICC line placement. Mild pulmonary vascular congestion but no acute process. Electronically signed by Jacek Talbot 05/18/2019 4:49 PM
[2019-05-18] MEDS: GLUCOPHAGE PO SCH (16:53)
--- NOTE | 2019-05-18 18:13 | ORTHOPAEDICS CONSULTATION ---
DATE: 05/18/2019 CHIEF COMPLAINT: Left knee pain. HISTORY OF PRESENT ILLNESS: This is an 79-year-old male who came into the emergency department on 05/11/2019 with complaints of fever, body aches, chills and nausea. The patient reports that Friday he had onset of cough. He went to an urgent care last week on Friday and was diagnosed with flu type A. The patient was admitted for septic workup, and orthopaedics was consulted to come see the patient for some left knee pain. REVIEW OF SYSTEMS: A 14-point review of systems was performed with pertinent positives in HPI. PAST MEDICAL HISTORY: Basal cell skin cancer, diabetes mellitus, hypertension, BPH, kidney stones. PAST SURGICAL HISTORY: He has had lithotripsy, skin cancer removal, right hand carpal tunnel surgery, appendectomy. SOCIAL HISTORY: The patient is a former smoker. He has no current tobacco, alcohol, or drug use. ALLERGIES: There are no known drug allergies. HOME MEDICATIONS: Amlodipine 10 mg daily, benazepril 40 mg at bedtime, gabapentin 100 mg daily, Mobic 15 mg daily, omeprazole 20 mg at bedtime, Accupril 40 mg daily, Flomax 0.4 mg at bedtime. PHYSICAL EXAMINATION: Vital Signs: Temperature 101.6, pulse rate 59, respiratory rate 17, blood pressure 156/53, oxygen saturation 97% on room air. General: The patient is awake, alert, and pleasant, sitting in bed, talking with family. He is in no acute distress at this time. HEENT: Head is atraumatic, normocephalic. Eyes equal, round, reactive. Neck: Supple. Chest: There is equal chest expansion and rise and fall. Cardiovascular: There is some mild tachycardia at this time. Abdomen: Soft, nontender. Extremities: Left lower extremity exam: There is a +2 effusion to the left knee. He is unable to bend the knee at this time due to pain. It is tender medially and laterally. There is warmth with palpation. There is no tenderness to the posterior portion of the knee. He has good pedal pulses. ASSESSMENT: 1. Possible sepsis with flu type A. 2. Left knee effusion and pain. PLAN: We plan to aspirate the left knee today. I went ahead and aspirated the left knee, and obtained roughly 60 mL of cloudy yellow synovial fluid. We will send that to the lab to check for infection. We have ordered some x-rays of the left knee, which we will evaluate later. We will check back on him later to see how he is doing. Dictated by SAMEERA Chi for Evan Victor MD cc: SAMEERA Chi MD Jagan Reddy, MD
[2019-05-18] MEDS ORDERED: COMBIVENT RESPIMAT INHALER INH PRN (18:35)
--- NOTE | 2019-05-18 21:13 | PROGRESS NOTE ---
DATE: 05/18/2019 LEVEL 3 DOCUMENTATION: Family members were at bedside. Multiple questions. Level of documentation is more than 35 minutes. Patient was seen twice, in the morning and in the evening. Apparently, patient has been doing very well until the messenger copy 3:00, suddenly had left knee pain. The patient had pain in right hip earlier. X-rays were negative. INTERVAL HISTORY: Patient has a PICC line, was placed anticipating ESBL positive E coli infection for home IV antibiotics with meropenem 1 g q.12 for at least 3 weeks. Patient's son has multiple question. He wants to change the diet to diabetic diet. He wants probiotics to be initiated. Sepsis is much improved. Left knee is with acute synovitis along with inflammation. X-rays of left knee ordered and showed osteoarthritic changes with metallic foreign body noted. OBJECTIVE: Vital Signs: He is running fever of 101.6, pulse 59. Vitals are stable. HEENT: Exam within normal limits. Chest: Clear. Cardiovascular: Heart sounds are regular. Abdomen: Belly is soft, nontender. Extremities: Right hip with no inflammation noted. Left knee has some ballottement and suprapatellar bursitis fluid noted. LABORATORY DATA: White cell count 10, hematocrit 34, platelets 210,000. PT/INR is normal. Uric acid 4.5. Synovial fluid 40,000 white cells. Crystals negative. ASSESSMENT AND PLAN: 1. Influenza A positive infection treated with Tamiflu for 5 days. 2. Followup chest x-ray, better. 3. Peripherally inserted central catheter line on the left side. 4. Escherichia coli extended spectrum beta-lactamase positive on Flomax due to prostatitis recurrent infection and continue IV antibiotics since hospital discharge at least for 2 weeks. 5. New development with left knee acute synovitis and Dr. Trotter consulted, aspirated 60 mL of fluid. It does not look like its septic. In the meantime, we will use the Mobic and Toradol. 6. Deep venous thrombosis and gastrointestinal prophylaxis as per order sheet. Initiate probiotics. 7. Diabetes. Started on metformin. 8. Hold the discharge until he is able to ambulate. 9. Patient's family wants to rule out the coronavirus infection COVID-19, and the test was completed. LEVEL OF DOCUMENTATION: 35 minutes. cc: Ryan Rose MD
[2019-05-18] MEDS: PRILOSEC PO SCH (23:11)
[2019-05-18] MEDS: NEURONTIN PO SCH (23:12)
[2019-05-19] MEDS: HUMULIN R SUBQ SCH ×4 (06:35→22:07)
--- NOTE | 2019-05-19 08:22 | ORTHOPAEDICS PROGRESS NOTE ---
DATE: 05/19/2019 SUBJECTIVE DATA: Mr. Matthews is seen today for his swelling and left knee pain. He reports that his knee does feel somewhat better since we have aspirated the fluid out of it. He reports that this started to swell again. He states his pain went from about 8/10 to a 4/10. OBJECTIVE DATA: There is decreased range of motion to the left knee due to pain. There is +1 effusion. There is still some slight warmth about the knee. There is some medial and lateral joint line tenderness. ASSESSMENT: DJD left knee with effusion. We will plan to keep an eye on it right now. We would not want to inject any type of steroid into his knee right now that might interfere with his medical conditions. He has been tested for the coronavirus. ASSESSMENT: Flu type A with possible sepsis, left knee effusion, and pain with DJD of the knee. PLAN: We will plan to come by tomorrow, and look at the knee again. If it needs to be aspirated again, we will go ahead and do that. We will hold off injecting any type of steroids at this time. Dictated by SAMEERA Chi for Evan Victor MD cc: SAMEERA Chi MD Jagan Reddy, MD
[2019-05-19] MEDS: MERREM 1 GM in NS 50 ML IV SCH ×3 (08:36→23:30)
[2019-05-19] MEDS: PROTONIX IV SCH (08:37)
[2019-05-19] MEDS: MOBIC PO SCH (08:37)
[2019-05-19] MEDS: CULTURELLE PO SCH (08:37)
[2019-05-19] MEDS: GLUCOPHAGE PO SCH ×2 (08:38→16:09)
[2019-05-19] MEDS: CENTRUM SILVER PO SCH (08:38)
[2019-05-19] MEDS: FLOMAX PO SCH ×2 (08:38→22:06)
[2019-05-19] MEDS: LOVENOX SUBQ SCH (08:38)
--- NOTE | 2019-05-19 20:49 | PROGRESS NOTE ---
DATE: 05/19/2019 SUBJECTIVE: The patient is a little better, left knee still hurting. He had a fever of 101. Urine culture still positive for Escherichia coli. An MRI fluoro did not see into the left knee. He came up abruptly onset with underlying osteoarthritis. Drained 60 mL of fluid. He still has quite a bit effusion noted and suprapatellar bursitis. He is not able to ambulate. PHYSICAL EXAMINATION: Temperature is 98.7 degrees, pulse 64. Vitals are stable.HEENT: Within normal limits. Neck: Supple. Chest: Clear. Heart: Sounds are regular. Abdomen: Belly is soft, nontender. Extremities: Left knee has acute synovitis noted. ASSESSMENT AND PLAN: 1. Influenza a infection, resolved. 2. Extended-spectrum beta lactamase Escherichia coli due to prostatitis, lingering and status post PICC line on the left side. 3. Left knee synovitis with suprapatellar bursitis. White cell count 40,000. Waiting for culture. He continues to need to be drained. We will discuss with Dr. Trotter. 4. Deep venous thrombosis and gastrointestinal prophylaxis as per order sheet. Continue on intravenous meropenem q.8 h. 1 g and probably he needs longer course of antibiotics. The knee is infected. 5. Diabetes, stable. 6. Continue probiotics. The patient is getting pain medicine with Mobic and waiting for Covid-19 report. 7. Repeat blood cultures on 05/18/2019 are still pending. Will check the labs in the morning. LEVEL OF DOCUMENTATION: 25 minutes. cc: Ryan Rose MD
[2019-05-19] MEDS: NEURONTIN PO SCH (22:06)
[2019-05-19] MEDS: PRILOSEC PO SCH (22:06)
[2019-05-19] MEDS: ULTRAM PO PRN (22:06)
[2019-05-20] MEDS: TYLENOL PO PRN (00:29)
[2019-05-20] MEDS: HUMULIN R SUBQ SCH ×4 (07:00→23:16)
[2019-05-20 07:40] LABS: BASO# 0.01 X1000 (0.0-0.2); BASO% 0.1 % (0.0-0.8); EOS# 0.16 X1000 (0.0-0.7); EOS% 2.4 % (0.0-10.0); HEMATOCRIT 32.3 % (42.0-52.0); HEMOGLOBIN 10.6 g/dL (14.0-18.0); IMM GRAN# 0.05 X1000 (0.0-0.04); IMM GRAN% 0.7 % (0.0-0.5); LYMPH# 1.33 X1000 (1.2-3.4); LYMPH% 19.9 % (20.5-51.1); MCH 31.9 PG (27-31); MCHC 32.8 g/dL (33-37); MCV 97.3 FL (81-99); MONO# 0.78 X1000 (0.11-0.59); MONO% 11.7 % (1.7-9.3); MPV 9.9 FL (7.4-10.4); NEUT# 4.36 X1000 (1.4-6.5); NEUT% 65.2 % (42.2-75.2); PLT 254 X1000 (130-400); RBC 3.32 XMIL (4.7-6.1); WBC 6.69 X1000 (4.8-10.8)
[2019-05-20 07:59] LABS: AGAP 9; BUN 13 mg/dL (8-22); CALCIUM 8.3 mg/dL (8.8-10.2); CHLORIDE 106 mmol/L (98-107); COSMO 279; CREATININE 0.9 mg/dL (0.7-1.2); ESTIMATED GFR > 60; GLUCOSE 164 mg/dL (70-104); POTASSIUM 3.7 mmol/L (3.5-5.1); SODIUM 138 mmol/L (136-145); TCO2 23 mmol/L (25-35)
[2019-05-20 08:43] LABS: SED RATE 105 mm/hr (0-15)
[2019-05-20] MEDS: FLOMAX PO SCH ×2 (10:09→23:14)
[2019-05-20] MEDS: CULTURELLE PO SCH (10:09)
[2019-05-20] MEDS: LOVENOX SUBQ SCH (10:09)
[2019-05-20] MEDS: GLUCOPHAGE PO SCH ×2 (10:09→17:43)
[2019-05-20] MEDS: MERREM 1 GM in NS 50 ML IV SCH ×3 (10:09→23:11)
[2019-05-20] MEDS: MOBIC PO SCH (10:09)
[2019-05-20] MEDS: CENTRUM SILVER PO SCH (10:09)
[2019-05-20] MEDS: PROTONIX IV SCH (10:10)
[2019-05-20] MEDS: COMBIVENT RESPIMAT INHALER INH PRN ×3 (10:53→22:00)
--- NOTE | 2019-05-20 13:41 | ORTHOPAEDICS PROGRESS NOTE ---
DATE: 05/20/2019 SUBJECTIVE DATA: Mr. Matthews is seen today for continued swelling and fluid in his left knee with pain. He reports that his knee does feel a lot better since the first aspiration. He has been able to bear some weight on it. He still having some difficulty walking. He states his pain at this time is about a 5/10. OBJECTIVE DATA: There is decreased range of motion of the left knee with a +1 effusion. There is no noticeable warmth today in the knee. There is some mild medial and lateral joint line tenderness. ASSESSMENT: Degenerative joint disease left knee with effusion. PLAN: We went ahead and aspirated the left knee again today. We got about 50 mL of clear yellow fluid and then got some blood-tinged fluid out toward the end. We still do not want to give him any type of steroids that might make his other medical conditions worsen. He will need to come and see Dr. Victor in clinic whenever he gets out of the hospital for a possible MRI of the knee. We will likely do steroid injections at that time to see if we can improve his pain. Dictated by SAMEERA Chi for Evan Victor MD cc: SAMEERA Chi MD Jagan Reddy, MD
--- NOTE | 2019-05-20 21:04 | PROGRESS NOTE ---
DATE: 05/20/2019 SUBJECTIVE: The patient had another knee tap of suprapatellar bursitis, drained 50 mL of fluid. Cultures are negative. He is feeling much better. OBJECTIVE: His fever was defervesced, at 99.9 degrees. Vital signs are stable. HEENT exam within normal limits. Chest is clear. Heart sounds are regular. Belly is soft, nontender. LABORATORY DATA: Repeat urine culture showed pseudomonas. Repeat blood cultures are pending. ASSESSMENT AND PLAN: 1. Influenza A infection, better. 2. Extended-spectrum beta-lactamase Escherichia coli due to prostatitis. Continue intravenous meropenem q.8. 3. Left knee osteoarthritis with effusion. So far no evidence of infection. Tapped twice. Continue on Toradol and meloxicam. 4. Deep venous thrombosis and gastrointestinal prophylaxis. 5. Peripherally inserted central catheter line on the left side. 6. Ambulation. Results are pending on COVID-19 virus. Level of documentation 25 minutes. cc: Ryan Rose MD
[2019-05-20] MEDS: NEURONTIN PO SCH (23:14)
[2019-05-20] MEDS: PRILOSEC PO SCH (23:14)
[2019-05-21] MEDS: HUMULIN R SUBQ SCH ×4 (06:34→22:40)
[2019-05-21] MEDS: SODIUM CHLORIDE 0.9% INJ SCH (10:10)
[2019-05-21] MEDS: PROTONIX IV SCH (10:10)
[2019-05-21] MEDS: CULTURELLE PO SCH (10:10)
[2019-05-21] MEDS: LOVENOX SUBQ SCH (10:10)
[2019-05-21] MEDS: MOBIC PO SCH (10:11)
[2019-05-21] MEDS: FLOMAX PO SCH ×2 (10:11→22:39)
[2019-05-21] MEDS: GLUCOPHAGE PO SCH ×2 (10:11→17:24)
[2019-05-21] MEDS: CENTRUM SILVER PO SCH (10:11)
[2019-05-21] MEDS: MERREM 1 GM in NS 50 ML IV SCH ×3 (10:11→23:57)
[2019-05-21] MEDS: COMBIVENT RESPIMAT INHALER INH PRN ×2 (11:46→14:59)
[2019-05-21] MEDS: NEURONTIN PO SCH (22:40)
[2019-05-21] MEDS: PRILOSEC PO SCH (22:40)
[2019-05-22] MEDS: HUMULIN R SUBQ SCH ×4 (07:24→21:51)
[2019-05-22] MEDS: CENTRUM SILVER PO SCH (10:16)
[2019-05-22] MEDS: GLUCOPHAGE PO SCH ×2 (10:16→17:35)
[2019-05-22] MEDS: CULTURELLE PO SCH (10:16)
[2019-05-22] MEDS: FLOMAX PO SCH ×2 (10:17→21:51)
[2019-05-22] MEDS: LOVENOX SUBQ SCH (10:17)
[2019-05-22] MEDS: PROTONIX IV SCH (10:17)
[2019-05-22] MEDS: MERREM 1 GM in NS 50 ML IV SCH ×2 (10:17→17:48)
[2019-05-22] MEDS: MOBIC PO SCH (10:17)
--- NOTE | 2019-05-22 20:47 | PROGRESS NOTE ---
DATE: 05/22/2019 SUBJECTIVE: The patient is feeling better and he is out of the bed. He is ambulating well. I appreciate Dr. Victor's follow up. PHYSICAL EXAMINATION: Vital Signs: Temperature is 98 degrees, pulse 64. Vitals are stable. HEENT: Within normal limits. Neck: Supple. Chest: Clear. Heart: Sounds are regular. Gastrointestinal: Belly is soft, nontender. Extremities: Left knee decrease in the synovitis and swelling. INVESTIGATIONS: Cultures so far negative. Repeat blood cultures on 05/17 were negative. ASSESSMENT AND PLAN: 1. Influenza A, recovered. 2. Escherichia coli Extended-Spectrum Beta-Lactamase (ESBL) sepsis, currently under meropenem. 3. Pseudomonas urinary tract infection, prostatitis. Continue IV meropenem. 4. Left knee pain with effusion due to osteoarthritis. Outpatient MRI as per Dr. Victor. 5. Diabetes is stable. 6. Deep venous thrombosis and gastrointestinal prophylaxis. 7. PICC line on the left side and consider using at least 3 weeks of intravenous meropenem as an outpatient, 1 q.12, and will follow up repeat blood cultures and urine cultures again prior to the discharge. Waiting for (coronavirus) COVID-19 testing. LEVEL OF DOCUMENTATION: 25 minutes. cc: Ryan Rose MD
[2019-05-22] MEDS: NEURONTIN PO SCH (21:51)
[2019-05-22] MEDS: PRILOSEC PO SCH (21:51)
[2019-05-23] MEDS: MERREM 1 GM in NS 50 ML IV SCH ×3 (00:40→18:17)
[2019-05-23] MEDS: HUMULIN R SUBQ SCH ×3 (06:15→20:51)
[2019-05-23] MEDS: MOBIC PO SCH (09:00)
[2019-05-23] MEDS: CENTRUM SILVER PO SCH (09:02)
[2019-05-23] MEDS: GLUCOPHAGE PO SCH ×2 (09:02→18:18)
[2019-05-23] MEDS: LOVENOX SUBQ SCH (09:03)
[2019-05-23] MEDS: CULTURELLE PO SCH (09:03)
[2019-05-23] MEDS: PROTONIX IV SCH (09:03)
[2019-05-23] MEDS: FLOMAX PO SCH ×2 (09:03→20:52)
--- NOTE | 2019-05-23 16:56 | PROGRESS NOTE ---
DATE: 05/23/2019 SUBJECTIVE: The patient is doing better. The left knee swelling is improving. He is able to ambulate. PHYSICAL EXAMINATION: Vital Signs: Temperature is 97 degrees. Pulse 60. Vitals are stable. HEENT: Within normal limits. Neck: Supple. No lymphadenopathy. Chest: Bilateral air entry. Heart: Sounds are regular. Abdomen: Belly is soft, nontender. Extremities: Decreased effusion in the left knee. LABORATORY DATA: Blood sugar is doing very well. ASSESSMENT AND PLAN: 1. Type 2 diabetes. On metformin, doing well. 2. Influenza A infection, better. 3. Deep venous thrombosis and gastrointestinal prophylaxes. 4. Left knee pain due to osteoarthritis, so far no infection noted. 5. Urinary tract infection. ESBL, Escherichia coli, on meropenem and will repeat the urine cultures and blood cultures and will follow up the pending test on Coronavirus testing 2019/COVID-19 LEVEL OF DOCUMENTATION: The level of documentation 25 minutes. cc: Ryan Rose MD
[2019-05-23] MEDS: NEURONTIN PO SCH (20:52)
[2019-05-23] MEDS: PRILOSEC PO SCH (20:52)
[2019-05-24] MEDS: MERREM 1 GM in NS 50 ML IV SCH ×3 (00:18→20:31)
[2019-05-24] MEDS: HUMULIN R SUBQ SCH ×4 (06:11→21:00)
[2019-05-24] MEDS: PROTONIX IV SCH (09:34)
[2019-05-24] MEDS: SODIUM CHLORIDE 0.9% INJ SCH (09:34)
[2019-05-24] MEDS: MOBIC PO SCH (09:35)
[2019-05-24] MEDS: CULTURELLE PO SCH (09:35)
[2019-05-24] MEDS: GLUCOPHAGE PO SCH ×2 (09:35→17:39)
[2019-05-24] MEDS: LOVENOX SUBQ SCH (09:35)
[2019-05-24] MEDS: FLOMAX PO SCH ×2 (09:35→20:31)
[2019-05-24] MEDS: CENTRUM SILVER PO SCH (09:35)
--- NOTE | 2019-05-24 20:07 | PROGRESS NOTE ---
DATE: 05/24/2019 SUBJECTIVE: The patient is doing better. COVID-19 testing came back normal. REVIEW OF SYSTEMS: None reported. PHYSICAL EXAMINATION: Temperature is 98 degrees, pulse 59. Vitals are stable.HEENT: Within normal limits. Neck: Supple. Chest: Bilateral air entry. Heart: Sounds are regular. Abdomen: Belly is soft, nontender. Good bowel sounds. Extremities: Left knee swelling is much improved. ASSESSMENT AND PLAN: 1. Influenza is better. Ruled out Coronavirus Disease 2019 testing. 2. Left knee osteoarthritis with effusion, better. 3. Extended spectrum beta-lactamases Escherichia coli currently IV meropenem, status post peripherally inserted central catheter line on the left side. 4. Deep vein thrombosis and gastrointestinal prophylaxis. 5. Type 2 diabetes. Doing very well. 6. 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 If no growth, we will discharge sometime in the middle of this week and we will follow up. cc: Ryan Rose MD
[2019-05-24] MEDS: PRILOSEC PO SCH (20:30)
[2019-05-24] MEDS: NEURONTIN PO SCH (20:31)
[2019-05-25] MEDS: MERREM 1 GM in NS 50 ML IV SCH ×3 (00:08→16:18)
[2019-05-25] MEDS: HUMULIN R SUBQ SCH ×4 (06:58→20:52)
[2019-05-25] MEDS: GLUCOPHAGE PO SCH ×2 (09:38→16:19)
[2019-05-25] MEDS: MOBIC PO SCH (09:38)
[2019-05-25] MEDS: PROTONIX IV SCH (09:38)
[2019-05-25] MEDS: CULTURELLE PO SCH (09:38)
[2019-05-25] MEDS: FLOMAX PO SCH ×2 (09:38→20:52)
[2019-05-25] MEDS: CENTRUM SILVER PO SCH (09:38)
[2019-05-25] MEDS: LOVENOX SUBQ SCH (09:39)
[2019-05-25] MEDS: COMBIVENT RESPIMAT INHALER INH PRN (15:35)
--- NOTE | 2019-05-25 20:15 | PROGRESS NOTE ---
DATE: 05/25/2019 SUBJECTIVE: The patient is feeling better and no complaints. He is off isolation. He is just on ESBL E coli and Pseudomonas urinary tract infection. PICC line on the left side. He was ruled out for COVID-19 virus infection. OBJECTIVE: Vital signs: Temperature is 97.9 degrees, pulse 59. Vitals are stable. HEENT: Within normal limits. Neck: Supple. Chest: Bilateral air entry. Heart: Sounds are regular. Abdomen: Belly is soft, nontender. Good bowel sounds. Extremities: Left knee swelling is much improved and cultures were negative. ASSESSMENT AND PLAN: 1. Urinary tract infection, recurrent. Continue on Flomax. 2. Extended spectrum beta-lactamases Escherichia coli with prostatitis. Continue meropenem 1 g q.8h. 3. Deep vein thrombosis and gastrointestinal prophylaxis. 4. Diabetes stable. 5. Left knee pain is improving. 6. Repeat urine cultures and blood cultures are pending and based on that, disposition will be made. LEVEL OF DOCUMENTATION: 25 minutes. cc: Ryan Rose MD
[2019-05-25] MEDS: PRILOSEC PO SCH (20:52)
[2019-05-25] MEDS: NEURONTIN PO SCH (20:52)
[2019-05-26] MEDS: MERREM 1 GM in NS 50 ML IV SCH ×3 (00:35→16:36)
[2019-05-26] MEDS: HUMULIN R SUBQ SCH ×4 (06:03→22:04)
[2019-05-26] MEDS: SODIUM CHLORIDE 0.9% INJ SCH (09:36)
[2019-05-26] MEDS: PROTONIX IV SCH (09:36)
[2019-05-26] MEDS: MOBIC PO SCH (09:37)
[2019-05-26] MEDS: FLOMAX PO SCH ×2 (09:37→22:03)
[2019-05-26] MEDS: CENTRUM SILVER PO SCH (09:37)
[2019-05-26] MEDS: LOVENOX SUBQ SCH (09:37)
[2019-05-26] MEDS: CULTURELLE PO SCH (09:37)
[2019-05-26] MEDS: GLUCOPHAGE PO SCH ×2 (09:37→17:36)
--- NOTE | 2019-05-26 16:50 | PROGRESS NOTE ---
DATE: 05/26/2019 SUBJECTIVE: Patient is doing very well. REVIEW OF SYSTEMS: None reported. OBJECTIVE: Vital signs: Afebrile vitals are stable. Physical exam no change. Extremities: Decreased left knee synovitis. REPEAT INVESTIGATIONS: Repeat urine culture on 05/23 is negative. Blood cultures are negative. ASSESSMENT AND PLAN: 1. Clinically he is much improved from influenza A infection. Ruled out Coronavirus Disease 2019 infection. 2. Recurrent urinary tract infection from extended spectrum beta lactamase, Escherichia coli, and Pseudomonas. Continue intravenous meropenem. If he is stable, will discharge. Outpatient IV antibiotics at least for 4 weeks with meropenem 1 g q.12 and will make the arrangements. LEVEL OF DOCUMENTATION: Twenty-five minutes. cc: Ryan Rose MD
[2019-05-26] MEDS ORDERED: CATHFLO IV ONE (17:53)
[2019-05-26] MEDS ORDERED: STERILE WATER INJ. INJ ONE (17:53)
[2019-05-26] MEDS: NEURONTIN PO SCH (22:03)
[2019-05-26] MEDS: PRILOSEC PO SCH (22:04)
[2019-05-27] MEDS: MERREM 1 GM in NS 50 ML IV SCH ×3 (00:50→17:33)
[2019-05-27] MEDS: HUMULIN R SUBQ SCH ×4 (06:26→20:57)
[2019-05-27] MEDS: LOVENOX SUBQ SCH (09:24)
[2019-05-27] MEDS: CENTRUM SILVER PO SCH (09:24)
[2019-05-27] MEDS: GLUCOPHAGE PO SCH ×2 (09:24→17:33)
[2019-05-27] MEDS: PROTONIX IV SCH (09:24)
[2019-05-27] MEDS: CULTURELLE PO SCH (09:25)
[2019-05-27] MEDS: FLOMAX PO SCH ×2 (09:25→20:55)
[2019-05-27] MEDS: MOBIC PO SCH (09:25)
--- NOTE | 2019-05-27 18:12 | PROGRESS NOTE ---
DATE: 05/27/2019 SUBJECTIVE: The patient is doing better and no complaints. OBJECTIVE: Vitals are stable and physical exam no change. ASSESSMENT AND PLAN: 1. Extended-spectrum beta-lactamase Escherichia coli. Continue IV antibiotics. Meropenem 1 g q.12 hours for 3 weeks. 2. Recurrent urinary tract infection. We will discuss in the future a plan. 3. Diabetes is stable. 4. Resolving left knee effusion, currently stable. Continue present treatment. We will discharge in the morning. LEVEL OF DOCUMENTATION: 25 minutes. cc: Ryan Rose MD
[2019-05-27] MEDS: NEURONTIN PO SCH (20:55)
[2019-05-27] MEDS: PRILOSEC PO SCH (20:55)
[2019-05-28] MEDS: MERREM 1 GM in NS 50 ML IV SCH ×2 (00:30→08:58)
[2019-05-28] MEDS: HUMULIN R SUBQ SCH ×2 (06:11→12:02)
[2019-05-28] MEDS: LOVENOX SUBQ SCH (08:51)
[2019-05-28] MEDS: FLOMAX PO SCH (08:56)
[2019-05-28] MEDS: GLUCOPHAGE PO SCH (08:56)
[2019-05-28] MEDS: CULTURELLE PO SCH (08:57)
[2019-05-28] MEDS: MOBIC PO SCH (08:57)
[2019-05-28] MEDS: PROTONIX IV SCH (08:58)
[2019-05-28] MEDS: CENTRUM SILVER PO SCH (09:03)
[2019-05-28 11:53] VITALS: BP 129/96
--- NOTE | 2019-05-29 13:11 | DISCHARGE SUMMARY ---
ADMISSION DATE: 05/12/2019 DISCHARGE DATE: 05/28/2019 DISCHARGING DIAGNOSIS: Urosepsis due to extended-spectrum beta-lactamase Escherichia coli. SECONDARY DIAGNOSES: 1. Influenza A infection. 2. Recurrent urinary tract infection due to prostatitis with Escherichia coli, extended-spectrum beta-lactamase positive and Pseudomonas. 3. Left knee suprapatellar bursitis with underlying osteoarthritis - arthrocentesis x2; 100 mL of fluid was removed. 4. Type 2 diabetes. 5. Hypertension. 6. Benign prostatic hypertrophy. 7. Kidney stones. CONSULTANTS: Dr. Abernathy, Dr. Victor and Dr. Trotter. PROCEDURES: 1. PICC line on the left side. 2. Arthrocentesis of left knee x2, removed 100 mL of serous fluid. White cells less than 50,000. Cultures were negative. BRIEF HISTORY: Please see the History and Physical P that was done on 05/12/2019 by Hospitalist. In brief, this 79-year-old white gentleman was seen in [place] for upper respiratory infection, diagnosed with flu A. While he was getting better, he came here with low-grade fever, hypotension. He has UTI infection by dipstick. The patient was admitted in the ICU. HOSPITAL COURSE: 1. Influenza A infection. He was treated with Tamiflu for 5 days. He did not have any signs of pneumonitis. 2. Hypotension due to urosepsis, ESBL E coli positive in the urine as well as in the blood. He was given broad-spectrum antibiotics with Levaquin and Zosyn. He was resuscitated with crystalloids and low dose of Levophed. He was transferred to the ICU after hemodynamically stable, and the hospital course was prolonged due to these following reasons. The patient developed a sudden left knee pain with synovitis. There was a lot of fluid in the suprapatellar bursa. Ortho consult was obtained by Dr. Trotter/Dr. Victor, aspirated 100 mL of fluid on 2 different occasions. White cell count in the synovial fluid is less than 50,000. Cultures were negative. Repeat urine culture showed pseudomonas. Dr. Abernathy was consulted. The patient was started on Flomax along with continuation of IV antibiotics. In light of diabetes, recurrent UTIs, the antibiotic was changed after the cultures came back with sensitivity, with meropenem 1 g IV q.8. He did receive about 12 days in the hospital. I did arrange outpatient IV meropenem 1 g q.12 for 3 more weeks. At the time of discharge, patient was stable. LABORATORY DATA: CBC: White cell count 6.6, hematocrit 32, platelets 254,000. Sodium 138, potassium 3.7, chloride 106, BUN 13, creatinine 0.9, glucose 279. Synovial fluid: White cell count 42,000. No crystals were identified. Coronavirus report was negative. Repeat urine cultures on 05/21/2019 no growth. Blood cultures were no growth. DISCHARGE INSTRUCTIONS: Pneumococcal vaccine 23 was given in 2010. DISCHARGE MEDICATIONS: Omeprazole 20 mg once daily, Mobic 15 daily, amlodipine 10 daily, Flomax 0.4 at bedtime, Centrum Silver 1 tablet daily, Neurontin 100 daily. Discontinue quinapril/Accupril; Please put him on benazepril 40 mg daily. Culturelle 1 tablet daily, metformin 500 p.o. b.i.d. Continue intravenous meropenem 1 g q.12 hours for 3 weeks with a PICC line. FOLLOWUP: Outpatient home health care at his requisition, and follow up in my office in 10 days as well as Dr. Victor for the left knee and an Dr. Abernathy for the prostate. cc: Ryan Rose MD
== END 2019-05-28 13:37 | disposition home health service (06) | DRG 872 ==
LOC: ED 20:08 → ICU 05-12 04:47 → SUATTDRO 05-12 04:47 → 3N 05-15 10:40
PROVIDERS: ADMIT Internal Medicine; ATTEND Internal Medicine